=== PATIENT | female | born 1995 | race Caucasian/White ===

== ENCOUNTER 2017-07-21 20:18 | Emergency (ER) | payer OTHER ==
[2017-07-21 20:31] VITALS: BMI 41.2
[2017-07-21] MEDS ORDERED: NS 1000 ML 1,000 ML IV ONE (21:09)
--- NOTE | 2017-07-21 21:15 | DR.NAUSEAF ---
HPI - Time Seen Time seen: 21:08 - Primary Care Physician Primary Care Physician: harpreet-(ob in [place]) - Complaints Chief Complaint Doctors Comments: Patient states she passed out at work and fell and hit her head on the shelves about an hour ago. States she is 15 weeks with twins and has had nausea, vomiting with decreased appetite for the past four days. States she tried eating and has not been able to keep anything down. States she has had problems with spotting with her previous pregnancies but none presently. States this is her third . She denies , dysuria, hematuria, diarrhea, cold or cough. she denies alcohol or tobacco usage. States she does not remember falling but denies blurred vision, numbness , tingling or weakness in legs. Patient denies neck pain. She is moving all extremities and states she could stay with her mother. Chief Complaint:: pt says she is 15 weeks with twins-has n/v x 4 days- passed out at work [id number] back of head - Reviewed Nurses Notes Reviewed: Yes - Source History Provided: Patient, EMS - Mode of Arrival Mode of Arrival: Stretcher - Timing Onset of Chief Complaint: 07/21/17 - Context Onset: Spontaneous Recent: None Possible Ingestion: Unknown : Yes : 3 Para: 2 History of: None - Quality Quality: Food Particles - Associated Signs and Symptoms Abdominal Pain Location: denies: Diffuse, Epigastric, RUQ, LUQ, RLQ, LLQ, Suprapubic Symptoms: denies: Abdominal Pain, Diarrhea, Anorexia, Hematemesis, Melena, Hematochezia, Fever PMH - PMH Past Medical History: No Past Surgical History: Yes Surgical History: - Family History History of Family Medical Conditions: No Family Medical History: Diabetes Mellitus, Hypertension - Social History Do you use any recreational Drugs:: No - infectious screening In the last 2 months have you had wt loss of >10#?: NO Have you had fever, night sweats or hemotysis?: No Have you traveled outside the country in the last 6 months?: No Isolation: Standard ROS - Review of Systems Constitutional: No Symptoms Reported, Weakness, Loss of Appetite. negative: See HPI, Chills, Diaphoresis, Fever, Malaise, Irritable, Fatigue, Other Eyes: No Symptoms Reported ENTM: No Symptoms Reported. negative: See HPI, Ear Pain, Ear Discharge, Pulling on Ears, Hearing Loss, Nose Pain, Nose Discharge, Epistaxis, Nose Congestion, Mouth Pain, Mouth Swelling, Loose Teeth, Drooling, Throat Pain, Throat Swelling, Ear Foreign Body Respiratoy: No Symptoms Reported. negative: See HPI, Productive Cough, Non- Productive Cough, Moist Cough, Dry Cough, Hacking Cough, Barking Cough, Brassy Cough, Orthopnea, Short of Breath, Stridor, Wheezing, Hemoptysis, Other Cardiovascular: No Symptoms Reported. negative: See HPI, Chest Pain, Edema, Palpitations, Syncope, Cyanosis, Skin Mottling, Other Gastrointestinal/Abdominal: No Symptoms Reported, Nausea, Vomiting. negative: See HPI, Abdominal Pain, Constipation, Diarrhea, Food Intolerance, Other Genitourinary: No Symptoms Reported Neurological: No Symptoms Reported, Headache (occipital pain right side). negative: See HPI, Anxiety, Depressed, Emotional Problems, Numbness, Paresthesia , Pre-existing Deficit, Seizure, Tingling, Tremors, Weakness, Dizziness, Problems Walking, Speech Problem, Other Musculoskeletal: No Symptoms Reported Integumentary: No Symptoms Reported, Lumps (right occipital 4 cm swelling) Hematologic/Lymphatic: No Symptoms Reported, See HPI. negative: Anemia, Blood Clots, Easy Bleeding, Easy Bruising, Swollen Glands, Lymphadenopathy, Other Endocrine: No Symptoms Reported, Decreased Appetite. negative: See HPI, Excessive Sweating, Flushing, Intolerance to Cold, Intolerance to Heat, Increased Hunger, Increased Thirst, Increased Urine, Unexplained Weight Gain, Unexplained Weight Loss, Failure to Thrive, Other Psychiatric: No Symptoms Reported. negative: See HPI, Anxiety, Depression, Hallucinations, Excessive crying, Suicidal, Other PE - Vital Signs Vitals: Temperature 98.5 F Pulse Rate [Standing] 91 Pulse Rate [Sitting] 78 Pulse Rate [Lying] 80 Pulse Rate 77 Respiratory Rate 16 Blood Pressure [Standing] 112/60 Blood Pressure [Sitting] 107/59 Blood Pressure [Lying] 105/59 Blood Pressure 112/59 O2 Sat by Pulse Oximetry 99 - General Limitations: No Limitations General Appearance: Alert, In No Apparent Distress - Head Head Exam: Normal Inspection, Normocephalic. negative: Atraumatic (right occipital scalp with 4 cm nodule) - Eyes Eye exam: Normal Appearance, PERRL, EOMI. negative: Scleral Icterus, Conjunctival Injection, Nystagmus, Miosis, Mydrasis, Periorbital Swelling, Periorbital Tenderness, Other - ENT ENT Exam: Normal Exam, Normal Oropharynx, Normal External Ear Exam, Mucous Membranes Moist, TM's Normal Bilaterally - Neck Neck Exam: Normal Inspection, Full ROM, Trachea Midline. negative: Tenderness, Meningismus, Lymphadenopathy, Thyromegaly, Other - Chest Chest Inspection: Normal Inspection, Symmetric Chest Wall Rise. negative: Tenderness, Rash, Abscess, Other - Respiratory Respiratory Exam: Normal Lung Sounds Bilat. negative: Accessory Muscle Use, Chest Wall Tenderness, Prolonged Expiratory Phase, Respiratory Distress, Stridor , Other Respiratory Exam: Bilateral Clear to Auscultation - Cardiovascular Cardiovascular Exam: Regular Rate, Normal Rhythm, Normal Heart Sounds. negative : Bradycardia, Tachycardia, Irregular Rhythm, Systolic Murmur, Diastolic Murmur , Rubs, Gallop, Clicks, JVD, +S1, +S2, +S3, +S4, Other - Abdominal Exam Abdominal Exam: Normal Inspection, Normal Bowel Sounds, Soft. negative: Distention, Tenderness, Guarding, Rebound, Rigidity, Dimnished Bowel Sounds, Hyperactive Bowel Sounds, Hypoactive Bowel Sounds, Organomegaly, Trauma, Incision, Ascites, Mass, Bruit, Pulsatile Mass, Hernia, Other Abdominal Tenderness: negative: RUQ, RLQ, LUQ, LLQ, Epigastrium, Suprapubic, Diffuse, Mild, Moderate, Severe, Other - Rectal Rectal Exam: Deferred - External Exam: Female: Deferred : Bimanual Exam (female): Deferred - Extremities Extremities Exam: Normal Inspection, Full ROM, Tenderness, Normal Capillary Refill. negative: Edema, Joint Swelling, Calf Tenderness, Other - Back Back Exam: Normal Inspection, Full ROM. negative: Tenderness, (R) CVA Tenderness, (L) CVA Tenderness, Muscle Spasm, Paraspinal Tenderness, Vertebral Tenderness, Rashes, (R) Sciatic Notch Tenderness, (L) Sciatic Notch Tendern, (R ) Straight Leg Raise, (L) Straight Leg Raise, Other - Neurologic Neurological Exam: Alert, Oriented X3, CN II-XII Intact, Normal Gait, Reflexes Normal - Psychiatric Psychiatric Exam: Normal Affect, Normal Mood. negative: Depressed, Agitated, Anxious, Flat Affect, Manic, Homicidal Ideation, Suicidal Ideation, Other - Skin Skin Exam: Warm, Dry, Intact, Normal Color ROR - Labs Reviewed Laboratory Results Reviewed?: Yes (all labs and x-ray results reviewed and discussed with patient.) Result Diagrams: 07/21/17 21:16 07/21/17 21:16 Laboratory: WBC 9.8 X10^3/uL (3.6-10.0) 07/21/17 21:16 RBC 4.18 X10^6/uL (3.5-5.4) 07/21/17 21:16 Hgb 10.6 g/dL (12.0-16.0) L 07/21/17 21:16 Hct 31.2 % (36.0-47.0) L 07/21/17 21:16 MCV 74.7 fL (80.0-100.0) L 07/21/17 21:16 MCH 25.4 pg (27.0-34.0) L 07/21/17 21:16 MCHC 34.1 g/dL (33.0-35.0) 07/21/17 21:16 RDW 15.1 % (11.6-16.5) 07/21/17 21:16 Plt Count 209 X10^3/uL (150.0-450.0) 07/21/17 21:16 Plt Count Comment Adequate (ADEQUATE) 07/21/17 21:16 MPV 8.1 fL (7.4-11.0) 07/21/17 21:16 Neut % 81.7 % (42.0-75.0) H 07/21/17 21:16 Lymph % 11.9 % (21.0-51.0) L 07/21/17 21:16 [place] % 5.7 % (0.0-13.0) 07/21/17 21:16 Eos % 0.3 % (0.9-2.9) L 07/21/17 21:16 Baso % 0.4 % (0.2-1.0) 07/21/17 21:16 Neut # 8.0 x10^3/uL (2.2-4.8) H 07/21/17 21:16 Lymph # 1.2 X10^3/uL (1.3-2.9) L 07/21/17 21:16 [place] # 0.6 x10^3/uL (0.3-0.8) 07/21/17 21:16 Eos # 0.0 x10^3/uL (0.0-0.2) 07/21/17 21:16 Baso # 0.0 X10^3/uL (0.0-0.1) 07/21/17 21:16 Absolute Nucleated RBC 0.0 /100WBC 07/21/17 21:16 Plt Morphology Comment Normal (NORMAL) 07/21/17 21:16 RBC Morphology Abnormal (NORMAL) A 07/21/17 21:16 Microcytosis Slight A 07/21/17 21:16 Sodium 136 mmol/L (136-145) 07/21/17 21:16 Corrected Sodium TNP 07/21/17 21:16 Potassium 3.5 mmol/L (3.5-5.1) 07/21/17 21:16 Chloride 103 mmol/L (98-107) 07/21/17 21:16 Carbon Dioxide 21.3 mmol/L (21-32) 07/21/17 21:16 BUN 6 mg/dL (7-18) L 07/21/17 21:16 Creatinine 0.68 mg/dL (0.55-1.02) 07/21/17 21:16 Est GFR (MDRD) Af Amer > 60 (>60) 07/21/17 21:16 Est GFR (MDRD) Non-Af > 60 (>60) 07/21/17 21:16 Glucose 77 mg/dL (65-99) 07/21/17 21:16 Calcium 8.5 mg/dL (8.5-10.1) 07/21/17 21:16 Corrected Calcium 9.5 mg/dL (8.5-10.1) 07/21/17 21:16 Total Bilirubin 0.50 mg/dL (0.2-1.0) 07/21/17 21:16 AST 64 Units/L (15-37) H 07/21/17 21:16 ALT 70 Units/L (12-78) 07/21/17 21:16 Alkaline Phosphatase 173 Units/L (46-116) H 07/21/17 21:16 Total Protein 6.8 g/dL (6.4-8.2) 07/21/17 21:16 Albumin 2.8 g/dL (3.4-5.0) L 07/21/17 21:16 Globulin 4.0 g/dL (2.5-4.5) 07/21/17 21:16 Albumin/Globulin Ratio 0.7 Ratio (1.1-2.1) L 07/21/17 21:16 Amylase 57 Units/L (25-115) 07/21/17 21:16 Lipase 81 Units/L (73-393) 07/21/17 21:16 HCG, Quant [id number] mIU/mL (0-6) H 07/21/17 21:16 Specimen Type Clean catch urine 07/21/17 22:45 Urine Color Diana (YELLOW) 07/21/17 22:45 Urine Appearance Cloudy (CLEAR) 07/21/17 22:45 Urine pH 6.0 (5.0 - 8.0) 07/21/17 22:45 Ur Specific [place] 1.020 (1.000-1.030) 07/21/17 22:45 Urine Protein 2+ (NEGATIVE) 07/21/17 22:45 Urine Glucose (UA) Negative (NEGATIVE) 07/21/17 22:45 Urine Ketones 4+ (NEGATIVE) 07/21/17 22:45 Urine Occult Blood 2+ (NEGATIVE) 07/21/17 22:45 Urine Nitrite Negative (NEGATIVE) 07/21/17 22:45 Urine Bilirubin Negative (NEGATIVE) 07/21/17 22:45 Urine Urobilinogen 2+ (NORMAL) 07/21/17 22:45 Ur Leukocyte Esterase 3+ (NEGATIVE) 07/21/17 22:45 Urine RBC 10-15 /HPF (NEGATIVE) 07/21/17 22:45 Urine WBC 30-40 /HPF (NEGATIVE) 07/21/17 22:45 Ur Squamous Epith Cells Numerous /HPF (NEGATIVE) 07/21/17 22:45 Urine Bacteria 2+ /HPF (NEGATIVE) 07/21/17 22:45 Urine Trichomonas Many /HPF (NEGATIVE) 07/21/17 22:45 Ur Culture Indicated? Yes/culture set up 07/21/17 22:45 - XRAY XRAY Interpreted by: Radiologist (US: Twin 15 weeks, 3 days. Heart rate 171 twin A and B.) - Diagnosis Discharge Problem: Syncope and collapse, Twin gestation in first trimester, Trichomonal vaginitis , Hematoma Head trauma Qualifiers: Encounter type: initial encounter Qualified Code(s): S09.90XA - Unspecified injury of head, initial encounter Urinary tract infection Qualifiers: Urinary tract infection type: site unspecified Hematuria presence: without hematuria Qualified Code(s): N39.0 - Urinary tract infection, site not specified - Discharge Plan Disposition: HOME, SELF-CARE Condition: Stable Prescriptions: Nitrofurantoin Macrocrystal [Macrodantin 100 mg] 100 mg PO BID PRN #20 cap PRN Reason: - Follow ups/Referrals Follow ups/Referrals: NFD,None [Primary Care Provider] - 3 days PRESTON PRASAD V [REFERRING] - 3 days - Instructions Instructions: Urinary Tract Infection, Adult, Syncope, [id number], First Trimester of , Head Injury, Adult, [id number]
[2017-07-21] MEDS ORDERED: NS 1000 ML 1,000 ML ONE (21:20)
[2017-07-21 21:24] LABS: BASOPHILS % (AUTO) 0.4 % (0.2-1.0); EOSINOPHILS % (AUTO) 0.3 % (0.9-2.9); HEMATOCRIT 31.2 % (36.0-47.0); HEMOGLOBIN 10.6 g/dL (12.0-16.0); LYMPHOCYTES # (AUTO) 1.2 X10^3/uL (1.3-2.9); LYMPHOCYTES % (AUTO) 11.9 % (21.0-51.0); MEAN CORPUSCULAR HEMOGLOBIN 25.4 pg (27.0-34.0); MEAN CORPUSCULAR HGB CONC 34.1 g/dL (33.0-35.0); MEAN CORPUSCULAR VOLUME 74.7 fL (80.0-100.0); MEAN PLATELET VOLUME 8.1 fL (7.4-11.0); MONOCYTES # (AUTO) 0.6 x10^3/uL (0.3-0.8); MONOCYTES % (AUTO) 5.7 % (0.0-13.0); NEUTROPHILS % (AUTO) 81.7 % (42.0-75.0); PLATELET COUNT 209 X10^3/uL (150.0-450.0); RED BLOOD COUNT 4.18 X10^6/uL (3.5-5.4); RED CELL DISTRIBUTION WIDTH 15.1 % (11.6-16.5); WHITE BLOOD COUNT 9.8 X10^3/uL (3.6-10.0)
[2017-07-21 21:39] LABS: ALANINE AMINOTRANSFERASE 70 Units/L (12-78); ALBUMIN 2.8 g/dL (3.4-5.0); ALKALINE PHOSPHATASE 173 Units/L (46-116); AMYLASE 57 Units/L (25-115); ASPARTATE AMINO TRANSFERASE 64 Units/L (15-37); BLOOD UREA NITROGEN 6 mg/dL (7-18); CALCIUM 8.5 mg/dL (8.5-10.1); CARBON DIOXIDE 21.3 mmol/L (21-32); CHLORIDE 103 mmol/L (98-107); COR CA(FOR HYPOALB) 9.5 mg/dL (8.5-10.1); CREATININE 0.68 mg/dL (0.55-1.02); LIPASE 81 Units/L (73-393); SODIUM 136 mmol/L (136-145); TOTAL PROTEIN 6.8 g/dL (6.4-8.2); eGFR BLACK RACES > 60 (>60); eGFR NON BLACK RACES > 60 (>60)
[2017-07-21 21:48] LABS: MICROCYTOSIS SLIGHT; PLATELET MORPHOLOGY COMMENT NORMAL (NORMAL)
[2017-07-21 23:24] LABS: BILIRUBIN,URINE NEGATIVE (NEGATIVE); BLOOD/HEMOGLOBIN,URINE 2+ (NEGATIVE); GLUCOSE, URINE NEGATIVE (NEGATIVE); KETONES,URINE 4+ (NEGATIVE); LEUKOCYTE ESTERASE ,URINE 3+ (NEGATIVE); NITRITES,URINE NEGATIVE (NEGATIVE); PROTEIN,URINE 2+ (NEGATIVE); UROBILINOGEN,URINE 2+ (NORMAL)
[2017-07-21 23:36] LABS: APPEARANCE,URINE CLOUDY (CLEAR); BACTERIA,URINE 2+ /HPF (NEGATIVE); COLOR,URINE AMBER (YELLOW); SQUAMOUS EPITHELIAL CELL,UR NUMEROUS /HPF (NEGATIVE); TRICHOMONAS,URINE MANY /HPF (NEGATIVE)
[2017-07-22] MEDS ORDERED: ROCEPHIN 1 GM IV PREMIX 1 GM/50 ML IV.SOLN. IV ONE (00:19)
[2017-07-22] MEDS ORDERED: NS 50 ML IV 50 ML IV ONE (00:32)
[2017-07-22] MEDS ORDERED: ROCEPHIN VIAL 1 GM ONE (00:32)
--- NOTE | 2017-07-22 00:55 | US ---
Ultrasound pelvis Indication: Syncope. patient with nausea and vomiting. Technique: Dynamic grayscale Doppler imaging through the pelvis using a transabdominal approach. Findings: Twin noted. Good movement is seen at both fetus is. Fetus A: BPD: 3.0 cm HC: 10.9 cm HC: 9.8 cm FL: 1.6 cm. Fetus A is transverse in position. The placenta is posteriorly located. Fetus B: BPD: 2.9 cm HC: 11.2 cm HC: 9.0 cm FL: 1.8 cm Fetus a shows poor visualization of the anatomy, with extremities, profile and thoracic spine a ppear grossly normal. The umbilical cord, diaphragm and lumbar spine appear grossly normal. Heart rat e of fetus A is 171 beats per minute. Fetus B shows limited visualization of anatomy with normal upper lower extremities as well as t horacic spine. Limited evaluation of the umbilical cord, cervical spine lumbar spine appear grossly n ormal. Heart rate is 171 beats per minute. Fetus A estimated due date is 01/08/2018 with an estimated gestational age of 15 weeks, 4 days pregna nt. Fetus B is estimated due date of 01/09/2018 with an estimated gestational age of 15 weeks, 3 days . Impression: Twin as above with limited analysis of anatomy. Reported By:
[2017-07-22] MEDS ORDERED: MACROBID CAP 100 MG EXT REL PO ONE ×2 (02:14)
[2017-07-22 02:23] VITALS: BP 105/59
== END 2017-07-22 02:58 | disposition home or self-care (01) ==
LOC: ER 20:18
DX: S09.8XXA Other specified injuries of head, initial encounter (principal); N39.0 Urinary tract infection, site not specified; R55 Syncope and collapse; Z3A.15 15 weeks gestation of pregnancy; A59.01 Trichomonal vulvovaginitis; T14.8XXA Other injury of unspecified body region, initial encounter
CPT/HCPCS: 36415; 76815; 80053; 81001; 82150; 83690; 84702; 85025; 87086; 96367; 96374; 99284; A4222; J0696